=== PATIENT | female | born 1975 | race Caucasian/White ===

== ENCOUNTER 2017-07-02 09:05 | Emergency (ER) | payer MEDICAID, OTHER ==
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
[2017-07-02 10:52] LABS: BASOPHILS % 0.7 (0.0-1.5); EOSINOPHILS % 0.4 % (0.0-6.8); MEAN CORPUSCULAR HEMOGLOBIN 28.1 pg (28.0-34.0); MEAN CORPUSCULAR VOLUME 91.2 fl (80.0-100.0); MONOCYTES % 6.4 % (0.0-11.0); NEUTROPHILS # 5.4 # k/uL (1.4-7.7)
[2017-07-02 11:10] LABS: AMPHETAMINE NEGATIVE ng/mL (<1000); BARBITURATES NEGATIVE ng/mL (<300); CANNABINOIDS NEGATIVE ng/mL (< 50); COCAINE NEGATIVE ng/mL (<150); METHAMPHETAMINE NEGATIVE ng/mL (<1000); METHYLENEDIOXYMETHAMPHETAMINE NEGATIVE ng/mL (<500); MORPHINE NEGATIVE ng/mL (<300)
[2017-07-02] MEDS ORDERED: ACETAMINOPHEN 325 MG TABLET PO ONE (11:11)
[2017-07-02] MEDS ORDERED: ACETAMINOPHEN 325 MG TABLET ONE (11:12)
[2017-07-02 11:15] LABS: eGFR (African) > 60; eGFR (Non-African) > 60
--- NOTE | 2017-07-02 13:13 | Diagnostic Imaging Report ---
VINCE GARCIA~ [facility] [id number] [address] ~ ~ ~ ~ Report Submission Date: Jul 02, 2017 10:35:45 AM CDT Patient ~ Study Name: COLLIN RENTERIA ~ Date: Jul 02, 2017 10:00:40 AM CDT ~ Modality Type: CR Gender: F ~ Description: CHEST : 71 ~ Institution: [facility] Physician: VINCE GARCIA ~ ~ ~ ~ Examination: PA and lateral chest. History: Evaluate lung brady. Comparison exam: None provided Findings: PA lateral chest demonstrate a normal cardiac and mediastinal silhouette. No focal infiltrate.~ No effusion.~ No blunting of the costophrenic margins.~ Osseous structures are appropriate for age. Impression: No acute pulmonary process. Suspect rib abnormality: recommend obtaining rib series. ~ Electronically signed on Jul 02, 2017 10:35:45 AM CDT by: Emmanuel SAM
--- NOTE | 2017-07-02 13:17 | Diagnostic Imaging Report ---
VINCE GARCIA~ [facility] [id number] [facility].[address] [address] ~ ~ ~ ~ Report Submission Date: Jul 02, 2017 11:49:51 AM CDT Patient ~ Study Name: COLLIN RENTERIA ~ Date: Jul 02, 2017 11:15:07 AM CDT ~ Modality Type: CR Gender: F ~ Description: CHEST : 71 ~ Institution: [facility] Physician: VINCE GARCIA ~ ~ ~ ~ Examination: Plain film ribs History: Injury Findings: 3 views of the ribs demonstrates lucencies involving the anterolateral margin of the 7th, 8th and likely 9th ribs. ~No underlying parenchymal regularity. Impression: 7th, 8th and 9th rib fractures. ~ Electronically signed on Jul 02, 2017 11:49:51 AM CDT by: Emmanuel SAM
[2017-07-02 13:29] VITALS: BP 112/78
== END 2017-07-02 13:24 | disposition home or self-care (01) ==
LOC: ED 09:05
DX: S22.42XA Multiple fractures of ribs, left side, initial encounter for closed fracture (principal); X58.XXXA Exposure to other specified factors, initial encounter; Y93.9 Activity, unspecified; Y99.9 Unspecified external cause status
CPT/HCPCS: 36415; 71020; 71100; 80053; 80377; 82550; 82553; 84484; 85025; 99283; G0481